=== PATIENT | female | born 1945 | race Caucasian/White ===

== ENCOUNTER 2021-12-28 06:28 | Day surgery (SDC) | payer OTHER ==
[2021-12-28] MEDS ORDERED: MOXIFLOXACIN HCL 0.5% 3ML OPTH OPTH ONE (06:55)
[2021-12-28] MEDS ORDERED: PHENYLEPHRINE 10% OPTH 5ML ONE (06:55)
[2021-12-28] MEDS ORDERED: TROPICAMIDE 1% OPTH 3 ML BOT ONE (06:55)
[2021-12-28] MEDS ORDERED: Ringers Lactate 1,000 ML IV ONE (06:55)
[2021-12-28] MEDS ORDERED: CYCLOPENTOLATE 2% OPTH 2 ML ONE (06:55)
[2021-12-28] MEDS ORDERED: KETOROLAC OPTHALMIC 5 ML BOT ONE (06:55)
[2021-12-28] MEDS ORDERED: TOBRADEX 0.3-0.1% OPTH OINTMENT ONE (07:05)
[2021-12-28] MEDS ORDERED: BSS OPTHALMIC SOL 15 ML OPTH ONE (07:05)
[2021-12-28] MEDS ORDERED: EPINEPHRINE/PF 1 MG/ML AMP ONE (07:06)
[2021-12-28] MEDS ORDERED: POVIDONE-IODINE 5% EYE DROPS ONE (07:06)
[2021-12-28] MEDS ORDERED: BALANCED SALT IRRIG PLAIN 500 ML IRR ONE (07:06)
[2021-12-28] MEDS ORDERED: DUOVISC 1 KIT OPTH ONE (07:07)
[2021-12-28] MEDS ORDERED: TRYPAN BLUE 0.5 ML SYR OPTH ONE (07:07)
[2021-12-28] MEDS ORDERED: propofoL 200 MG/20 ML VIAL IV ONE (07:25)
[2021-12-28] MEDS ORDERED: FENTANYL CITR 100 MCG/2 ML ONE (07:25)
[2021-12-28] MEDS ORDERED: LIDOCAINE 2% MPF 5 ML VIAL ONE (07:25)
[2021-12-28] MEDS ORDERED: ONDANSETRON 4 MG/2 ML VIAL ONE ×2 (08:00)
[2021-12-28] MEDS ORDERED: NS 0.9% VIAL 10 ML ONE (08:03)
[2021-12-28] MEDS ORDERED: Phenylephrine HCl 10 MG/ML 1 ML VIAL ONE (08:03)
[2021-12-28 08:59] VITALS: TEMP 97.1; O2SAT 98
--- NOTE | 2021-12-28 09:46 | OP ---
Date of Procedure: 12/28/2021 Surgeon: Casper Moscoso MD Alcohol Still Operator: None. 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 Procedure Performed: Synechiae lysis in right eye with extraction of cataract in right eye with plac ement of intraocular lens. Description Of Procedure: After being properly identified in the preoperative holding area, the jluis ent was taken back to the operating room where a time-out was performed. The patient was then preppe d and draped in the normal sterile fashion. Examination of the eye underneath the operating microsco pe revealed an area of posterior synechiae at roughly 11:30, securing the iris to the anterior capsul e. The globe was grasped with a pair of 0.12 forceps and a paracentesis wound was made in the 12 o'c lock and 6 o'clock position and the anterior chamber filled with viscoelastic. A main phaco incision wound was thereafter made using a keratome in a triplanar fashion and then additional viscoelastic a s well as the viscoelastic cannula was used to break the posterior synechiae. This was done without complication. A cystotome was then used to initiate a capsulotomy and a continuous curvilinear capsu lotomy was completed using Utrata forceps. Hydrodissection and hydrodelineation were carried out usi ng a Reynoso cannula resulting in free rotation of the lens nucleus and the lens was removed in a stand sahara divide and conquer technique. Once all 4 quadrants had been removed, the phaco handpiece was exc hanged for bimanual irrigation aspiration hand pieces that were inserted through the paracentesis por ts made previously and all cortical material was removed and the capsule polished. The capsular bag was then filled with additional viscoelastic and a model DCB00 power 20.5 diopter, serial #[id number] was placed into the capsular bag and dialed into position. The irrigation aspiration handpieces wer e then used to remove the remaining viscoelastic. At various points throughout the procedure, the te mporal iris did display some floppiness and did protrude through the wound on multiple occasions. Th is was reposited each time without complications. However, there was a small amount of iris bleeding noted towards the end. This was irrigated out and no hyphema was present. No additional bleeding w as seen. Hydration of all wounds was carried out and the wounds were all found to be watertight with the iris well secured and so therefore the procedure concluded. The lid speculum and drapes were re moved and the patient patched over TobraDex ointment and taken to the postoperative holding area in s table condition, having tolerated procedure well, being under general anesthesia the entire time. Th ere were no complications. Estimated blood loss was less than 5 mL. No specimens were sent. No janey ins were placed and the implants are as above. The patient is to follow up with myself, Dr. Casper Moscoso at the [facility] tomorrow morning. KARRIEG/ETIENNEL Voice ID: [id number] Report ID: [id number]
[2021-12-28 10:04] VITALS: BP 122/76
== END 2021-12-28 09:45 | disposition home or self-care (01) ==
LOC: OR 06:28
PROVIDERS: ATTEND Ophthalmology
PROC: 08NC3ZZ Release Right Iris, Percutaneous Approach (ICD-10-PCS; 2021-12-28)
PROC: 08RJ3JZ Replacement of Right Lens with Synthetic Substitute, Percutaneous Approach (ICD-10-PCS; principal; 2021-12-28 07:30)
DX: H25.11 Age-related nuclear cataract, right eye (principal); H21.541 Posterior synechiae (iris), right eye
CPT/HCPCS: 66984; 65875; J2704; J0171; J2370; J2001; J3010; A4216; J7120; J2405

== ENCOUNTER 2022-02-01 05:55 | Day surgery (SDC) | payer OTHER ==
[2022-02-01] MEDS ORDERED: PHENYLEPHRINE 10% OPTH 5ML ONE (06:01)
[2022-02-01] MEDS ORDERED: TROPICAMIDE 1% OPTH 3 ML BOT ONE (06:01)
[2022-02-01] MEDS ORDERED: KETOROLAC OPTHALMIC 5 ML BOT ONE (06:02)
[2022-02-01] MEDS ORDERED: CYCLOPENTOLATE 2% OPTH 2 ML ONE (06:02)
[2022-02-01] MEDS ORDERED: MOXIFLOXACIN HCL 0.5% 3ML OPTH OPTH ONE (06:02)
[2022-02-01] MEDS ORDERED: Ringers Lactate 1,000 ML IV ONE (06:02)
[2022-02-01] MEDS ORDERED: BSS OPTHALMIC SOL 15 ML OPTH ONE (06:50)
[2022-02-01] MEDS ORDERED: POVIDONE-IODINE 5% EYE DROPS ONE (06:50)
[2022-02-01] MEDS ORDERED: FENTANYL CITR 100 MCG/2 ML ONE (07:20)
[2022-02-01] MEDS ORDERED: KETOROLAC 30 MG/ML INJ ONE (07:21)
[2022-02-01] MEDS ORDERED: propofoL 200 MG/20 ML VIAL IV ONE (07:21)
[2022-02-01] MEDS ORDERED: LIDOCAINE 2% MPF 5 ML VIAL ONE (07:21)
[2022-02-01] MEDS ORDERED: ONDANSETRON 4 MG/2 ML VIAL ONE (07:21)
[2022-02-01] MEDS ORDERED: dexAMETHasone 4 MG/ML VIAL ONE (07:21)
[2022-02-01] MEDS: EPINEPHRINE/PF 1 MG/ML AMP ONE ×2 (07:34→08:10)
[2022-02-01] MEDS: BALANCED SALT IRRIG PLAIN 500 ML IRR ONE ×2 (07:34→08:10)
[2022-02-01] MEDS: DUOVISC 1 KIT OPTH ONE ×2 (07:35→08:10)
[2022-02-01] MEDS: TOBRADEX 0.3-0.1% OPTH OINTMENT ONE ×2 (07:36→08:14)
[2022-02-01 11:32] VITALS: BP 118/74; O2SAT 100
[2022-02-01 11:33] VITALS: TEMP 96.5
--- NOTE | 2022-02-01 18:25 | OP ---
Date of Procedure: 02/01/2022 Surgeon: Casper Moscoso MD Supervisor Printing Shop: None. Preoperative Diagnosis: Senile cataract, left eye. Postoperative Diagnosis: Senile cataract, left eye. Procedure Performed: Cataract extraction, left eye with placement of intraocular lens. Description Of Procedure: After being properly identified in the preoperative holding, the patient w as taken back to the operating room, where a time-out was performed. The patient was then prepped an d draped in normal sterile fashion. The globe was grasped with a pair of 0.12 forceps and a paracent esis wound was made in the 6 o'clock and 12 o'clock position and the anterior chamber filled with Vis coat. A main phaco incision was then made using a 2.4 mm keratome in a triplanar fashion temporally. A continuous curvilinear capsulorrhexis was initiated and created with an Utrata forceps, and hydro dissection and hydrodelineation of the lens was carried out resulting in its free rotation. The lens was thereafter removed in the standard divide and conquer technique with CDE approximately 12.96. O nce all 4 quadrants had been removed, the phaco handpiece was exchanged for bimanual irrigation, aspi ration handpieces, and all cortical material was removed followed by capsule yakut, and then, instal lation of Provisc. A [employer] model DCB00 IOL power 20.5 diopter, serial #[id number] was then injected into the capsular bag and rotated so that the haptics lied in the horizontal orientatio n, and thereafter, the remaining viscoelastic was removed using a coaxial I and A handpiece. The wou nd was then hydrated with a 30-gauge cannula, and once found to be watertight, the procedure conclude d with the patient having tolerated the procedure well being under general anesthesia the entire time . There were no complications. Estimated blood loss, none. No specimens were sent. No drains were placed. Implants are as above. The patient was taken to the postoperative holding area in stable c ondition having tolerated the procedure well. She is to follow up with myself, Dr. Casper Moscoso, at the [facility] tomorrow morning. JPG/MODL Voice ID: [id number] Report ID: [id number]
== END 2022-02-01 09:45 | disposition home or self-care (01) ==
LOC: OR 05:55
PROVIDERS: ATTEND Ophthalmology
PROC: 08RK3JZ Replacement of Left Lens with Synthetic Substitute, Percutaneous Approach (ICD-10-PCS; principal; 2022-02-01 07:30)
DX: H25.9 Unspecified age-related cataract (principal); H54.7 Unspecified visual loss; I10 Essential (primary) hypertension; Z88.8 Allergy status to other drugs, medicaments and biological substances
CPT/HCPCS: 66982; J2704; J1100; J0171; J2001; J3010; J7120; J2405

== ENCOUNTER 2024-11-16 08:40 | Observation (INO) | payer MEDICARE, OTHER ==
--- NOTE | 2024-11-16 09:43 | RAD REPORT ---
Procedure: Chest Single View HISTORY: Chest pain COMPARISON: none FINDINGS: The lungs appear clear of acute infiltrate. No significant pleural effusion noted. The heart is normal size. IMPRESSION: No acute abnormality is displayed.
[2024-11-16] MEDS ORDERED: ASPIRIN 81 MG CHEWABLE TABLET ONE (09:47)
[2024-11-16] MEDS ORDERED: FAMOTIDINE 20 MG/2 ML VIAL IV ONE (09:52)
[2024-11-16 09:55] LABS: Absolute Lymphocytes (CBC) 2.7 K/uL (0.7-4.9); Hematocrit 33.8 % (36.0-45.0); Hemoglobin 11.4 g/dL (12.0-15.0); MCH 30.9 pg (27.0-35.0); MCHC 33.7 g/dL (32.0-36.0); MCV 91.7 fL (80-100); MPV 8.9 fL (7.6-11.3); Nucleated RBC Absolute Count 0.0 (0-0); Nucleated Red Blood Cells % 0.0 % (0-0); RBC Red Blood Cell Count 3.69 M/uL (3.86-4.86); White Blood Count 9.40 thou/uL (4.3-10.9)
[2024-11-16 09:56] LABS: Urine Microscopic Reflex YN NO UMIC
[2024-11-16 10:04] LABS: PT Prothrombin Time 12.9 SECONDS (10-13.0); Protime INR 1.15
[2024-11-16 10:20] LABS: ALT/SGPT 29.0 U/L (13-56); AST/SGOT 17.0 U/L (15-37); Albumin 3.5 g/dL (3.4-5.0); Albumin/Globulin Ratio 0.9 (1.1-1.8); Alkaline Phosphatase 109.0 U/L (45-117); Anion Gap 9.7 mEq/L (5.0-15.0); BUN Blood Urea Nitrogen 12.0 mg/dL (7-18); Bilirubin Indirect, Calculated 0.2 mg/dL (0.2-0.8); Globulin 4.0 g/dL (2.3-3.5); Glucose Level 98.0 mg/dL (74-106); Lipase 40.0 U/L (13-75); Magnesium 1.6 mg/dL (1.6-2.4); NT PRO-BNP 136.0 pg/mL (<450); Potassium 3.7 mEq/L (3.5-5.1); Troponin High Sensitivity 4.1 pg/mL (<58.9)
--- NOTE | 2024-11-16 11:27 | EDPHYS ---
Physician Documentation [facility] Name: Mickie Olvera Age: 79 yrs Sex: Female : 1945 Arrival Date: 11/16/2024 Time: 08:40 Bed 14 Private MD: OMER Physician Aneesh Bravo HPI: 11/16 11:20 This 79 yrs old Female presents to ER via Ambulatory with complaints of Chest renae Pain. 11:20 The patient or guardian reports chest pain that is located primarily in the substernal renae area. Onset: 1 day(s) ago. The pain does not radiate. Associated signs and symptoms: Pertinent positives: shortness of breath. The chest pain is described as a heaviness, causing indigestion. Duration: The patient or guardian reports multiple episodes, with no pattern. Severity of pain: At its worst the pain was mild in the emergency department the pain is unchanged. The patient has not experienced similar symptoms in the past. Historical: - Allergies: 09:01 Morphine; ll1 09:01 nuts; ll1 - PMHx: 09:01 Hypertensive disorder; Diabetes mellitus; ll1 - PSHx: 09:01 Cholecystectomy; hysterectomy; ll1 - Immunization history:: Adult Immunizations up to date. - Social history:: Smoking status: Patient denies any tobacco usage or history of. - Family history:: not pertinent. ROS: 11:20 Constitutional: Negative for fever, chills, and weight loss, Eyes: Negative for injury, renae pain, redness, and discharge, ENT: Negative for injury, pain, and discharge, Neck: Negative for injury, pain, and swelling, Respiratory: Negative for shortness of breath, cough, wheezing, and pleuritic chest pain, Abdomen/GI: Negative for abdominal pain, nausea, vomiting, diarrhea, and constipation, Back: Negative for injury and pain, : Negative for injury, bleeding, discharge, and swelling, MS/Extremity: Negative for injury and deformity, Skin: Negative for injury, rash, and discoloration, Neuro: Negative for headache, weakness, numbness, tingling, and seizure, Psych: Negative for depression, anxiety, suicide ideation, homicidal ideation, and hallucinations, Allergy/Immunology: Negative for hives, rash, and allergies, Endocrine: Negative for neck swelling, polydipsia, polyuria, polyphagia, and marked weight changes, Hematologic/Lymphatic: Negative for swollen nodes, abnormal bleeding, and unusual bruising, 11:20 Cardiovascular: Positive for chest pain, Exam: 11:20 Constitutional: This is a well developed, well nourished patient who is awake, alert, renae and in no acute distress. Head/Face: Normocephalic, atraumatic. Eyes: Pupils equal round and reactive to light, extra-ocular motions intact. Lids and lashes normal. Conjunctiva and sclera are non-icteric and not injected. Cornea within normal limits. Periorbital areas with no swelling, redness, or edema. ENT: Nares patent. No nasal discharge, no septal abnormalities noted. Tympanic membranes are normal and external auditory canals are clear. Oropharynx with no redness, swelling, or masses, exudates, or evidence of obstruction, uvula midline. Mucous membranes moist. Neck: Trachea midline, no thyromegaly or masses palpated, and no cervical lymphadenopathy. Supple, full range of motion without nuchal rigidity, or vertebral point tenderness. No Meningismus. Chest/axilla: Normal chest wall appearance and motion. Nontender with no deformity. No lesions are appreciated. Cardiovascular: Regular rate and rhythm with a normal S1 and S2. No gallops, murmurs, or rubs. Normal PMI, no JVD. No pulse deficits. Respiratory: Lungs have equal breath sounds bilaterally, clear to auscultation and percussion. No rales, rhonchi or wheezes noted. No increased work of breathing, no retractions or nasal flaring. Abdomen/GI: Soft, non-tender, with normal bowel sounds. No distension or tympany. No guarding or rebound. No evidence of tenderness throughout. Back: No spinal tenderness. No costovertebral tenderness. Full range of motion. Female : Normal external genitalia. Skin: Warm, dry with normal turgor. Normal color with no rashes, no lesions, and no evidence of cellulitis. MS/ Extremity: Pulses equal, no cyanosis. Neurovascular intact. Full, normal range of motion., bilateral aka Neuro: Awake and alert, GCS 15, oriented to person, place, time, and situation. Cranial nerves II-XII grossly intact. Motor strength 5/5 in all extremities. Sensory grossly intact. Cerebellar exam normal. Normal gait. Psych: Awake, alert, with orientation to person, place and time. Behavior, mood, and affect are within normal limits. 11:20 ECG was reviewed by the Attending Physician. Vital Signs: 09:00 BP 147 / 81; Pulse 79; Resp 17; Temp 97.4; Pulse Ox 98% ; Weight 72.57 kg; Height 5 ft. ll1 2 in. ; Pain 2/10; 10:06 BP 143 / 97; Pulse 76; Resp 18; Pulse Ox 98% on R/A; ap3 11:19 BP 140 / 86; Pulse 77; Resp 17; Pulse Ox 99% on R/A; ap3 11:56 BP 135 / 79; Pulse 73; Resp 18; Pulse Ox 100% on R/A; ap3 13:58 BP 136 / 81; Pulse 77; Resp 18; Temp 98; Pulse Ox 100% ; Pain 0/10; rg5 09:00 Body Mass Index 29.26 (72.57 kg, 157.48 cm) ll1 09:00 Pain Scale: Adult ll1 13:58 Pain Scale: Adult rg5 [place] Coma Score: 11:20 Eye Response: spontaneous(4). Motor Response: obeys commands(6). Verbal Response: renae oriented(5). Total: 15. MDM: 08:48 Medical Screening Exam initiated renae 11:23 Differential diagnosis: abnormal EKG, acute myocardial infarction, acute pericarditis, renae anxiety, coronary artery disease chest wall pain, congestive heart failure pancreatitis, peptic ulcer disease, pleurisy, pneumonia, pulmonary embolus, stable angina, thoracic aortic disection, unstable angina. HEART Score: History: Moderately Suspicious (1), ECG: Normal (0), Age: > or = 65 years (2), Risk Factors: > or = 3 Risk factors for atherosclerotic disease (2), [Hypercholesterolemia] [Hypertension] [DM] [+ Family HX] Troponin: < or = 1 x Normal Limit (0). The patient was given aspirin in the Emergency Department. LIA Risk Score: 1 - patient's age is greater or equal to 65 years, 1 - Three or more CAD risk factors, [Family Hx], [HTN], [Elevated Cholesterol], [DM], 1- Known CAD, 1 - ASA use in past 7 days. Data reviewed: vital signs, nurses notes, lab test result(s), EKG, radiologic studies, plain films. Consideration of Admission/Observation Patient was admitted/placed on observation. Escalation of care including admission/observation considered. I considered the following discharge prescriptions or medication management in the emergency department Medications were administered in the Emergency Department. See MAR. Independent interpretation of the following test(s) in the Emergency Department EKG: See my EKG interpretation above X-Ray: My interpretation is CHEST PAIN. Test considered but Not performed:. 11/16 08:49 Order name: Basic Metabolic Panel; Complete Time: 11: [facility] 11/16 08:49 Order name: CBC with Diff; Complete Time: : [facility] 11/16 08:49 Order name: LFT's; Complete Time: : [facility] 11/16 08:49 Order name: Magnesium; Complete Time: : [facility] 11/16 08:49 Order name: NT PRO-BNP; Complete Time: : [facility] 11/16 08:49 Order name: PT-INR; Complete Time: 11: [facility] 11/16 08:49 Order name: Troponin HS; Complete Time: : [facility] 11/16 08:49 Order name: Lipase; Complete Time: 11: [facility] 11/16 08:49 Order name: UA Rfx Damon Cult if indicated; Complete Time: : [facility] 11/16 11:32 Order name: Lipid Profile 11/16 11:44 Order name: Ptt, Activated ap3 11/16 12:53 Order name: Magnesium [facility] 11/16 12:53 Order name: Phosphorus [facility] 11/16 12:54 Order name: T4 Free [facility] 11/16 12:54 Order name: Thyroid Stimulating Hormone [facility] 11/16 12:54 Order name: Basic Metabolic Panel [facility] 11/16 12:54 Order name: Basic Metabolic Panel [facility] 11/16 12:54 Order name: Comprehensive Metabolic Panel [facility] 11/16 12:54 Order name: Comprehensive Metabolic Panel [facility] 11/16 08:49 Order name: XRAY Chest (1 view); Complete Time: 11:10 [facility] 11/16 08:49 Order name: EKG; Complete Time: 08:50 [facility] 11/16 08:49 Order name: Cardiac monitoring; Complete Time: 09:40 [facility] 11/16 08:49 Order name: EKG - Nurse/Tech; Complete Time: 09:40 [facility] 11/16 08:49 Order name: IV Saline Lock; Complete Time: 09:54 renae 11/16 08:49 Order name: Labs collected and sent; Complete Time: :54 renae 11/16 08:49 Order name: O2 Per Protocol; Complete Time: : renae 11/16 08:49 Order name: O2 Sat Monitoring; Complete Time: : renae EC:20 Rate is 74 beats/min. Rhythm is regular. QRS [place] is Normal. MO interval is normal. QRS renae interval is normal. QT interval is normal. No Q waves. T waves are Normal. No ST changes noted. Clinical impression: Normal ECG and No evidence of ischemia. Interpreted by me. Reviewed by me. Administered Medications: 10:02 Drug: Aspirin PO Chewable Tablet 324 mg PO once; 81 mg tablets x 4 Route: PO; ap3 14:23 Follow up: Response: No adverse reaction rg5 10:02 Drug: Famotidine IVP 20 mg IVP once; dilute with 10 mL 0.9% NaCl; give over 2 minutes ap3 Route: IVP; Site: right antecubital; 11:51 Follow up: Response: No adverse reaction ap3 12:40 Drug: Heparin (PR-Bolus No thrombolytic) - HEParin IVP 60 units/kg IVP once; Max 5000 rg5 units {Co-Signature: [email or web address] (Je Torres RN).} Route: IVP; Site: right antecubital; 14:23 Follow up: Response: No adverse reaction rg5 12:45 Drug: Heparin (PR Drip) 12 units/kg/[place] - ([place] [address] units, D5W IV 500 ml) IV at rg5 calculated rate Per protocol; Max initial rate 1000 units/hr {Co-Signature: ll1 (Je Torres RN).} Route: IV; Rate: calculated rate; Site: right antecubital; 14:28 Follow up: IV Status: Infusion continued upon admission rg5 Disposition Summary: 11/16/24 11:26 Hospitalization Ordered Notes: Hospitalization Status: Inpatient Admission renae Provider: Rudy Agrawal cha Location: Telemetry/MedSurg (Inpatient) renae Condition: Fair renae Problem: new renae Symptoms: have improved renae Bed/Room Type: Standard renae Room Assignment: 208(11/16/24 13:09) bd Diagnosis - Chest pain, unspecified renae - Essential (primary) hypertension renae - Unstable angina renae Forms: - Medication Reconciliation Form renae - SBAR form renae - Leadership Thank You Letter renae Signatures: Dispatcher [employer] Zoila Machado Corey, MD MD cha Prokisch, Amanda RN RN ap3 Je Torres RN RN ll1 Aamir Rincon RN RN rg5 Je Torres RN ll1 Corrections: (The following items were deleted from the chart) 13: 11:26 renae ornelas
--- NOTE | 2024-11-16 11:27 | ER ---
Nurse's Notes [facility] Name: Mickie Olvera Age: 79 yrs Sex: Female : 1945 Arrival Date: 11/16/2024 Time: 08:40 Bed 14 Private MD: Diagnosis: Chest pain, unspecified;Essential (primary) hypertension;Unstable angina Presentation: 11/16 09:00 Chief complaint: Patient states: CP off/on for a few months. Some SOB. Coronavirus ll1 screen: Client denies travel out of the [place] in the last 14 days. At this time, the client does not indicate any symptoms associated with coronavirus-19. Ebola Screen: Patient denies travel to an Ebola-affected area in the 21 days before illness onset. Initial Sepsis Screen: Does the patient meet any 2 criteria? No. Patient's initial sepsis screen is negative. Does the patient have a suspected source of infection? No. Patient's initial sepsis screen is negative. Risk Assessment: Do you want to hurt yourself or someone else? Patient reports no desire to harm self or others. Onset of symptoms was August 15, 2024. 09:00 Method Of Arrival: Ambulatory ll1 09:00 Acuity: JAMEL 3 ll1 Triage Assessment: 10:04 General: Appears in no apparent distress. Behavior is calm, cooperative, appropriate ap3 for age. Pain: Complains of pain in xiphoid area and mid-sternal area Pain currently is 0 out of 10 on a pain scale. Is intermittent. Neuro: Level of Consciousness is awake, alert, obeys commands, Oriented to person, place, time, situation, Appropriate for age. Cardiovascular: Reports chest pain, Patient's skin is warm and dry. Respiratory: Airway is patent Respiratory effort is even, unlabored, Respiratory pattern is regular, symmetrical. Historical: - Allergies: 09:01 Morphine; ll1 09:01 nuts; ll1 - PMHx: 09:01 Hypertensive disorder; Diabetes mellitus; ll1 - PSHx: 09:01 Cholecystectomy; hysterectomy; ll1 - Immunization history:: Adult Immunizations up to date. - Social history:: Smoking status: Patient denies any tobacco usage or history of. - Family history:: not pertinent. Screenin:04 [facility] ED Fall Risk Assessment (Adult) History of falling in the last 3 months, ap3 including since admission No falls in past 3 months (0 pts) Confusion or Disorientation No (0 pts) Intoxicated or Sedated No (0 pts) Impaired Gait No (0 pts) Mobility Assist Device Used No (0 pt) Altered Elimination No (0 pt) Score/Fall Risk Level 0 - 2 = Low Risk Oriented to surroundings, Maintained a safe environment, Educated pt \T\ family on fall prevention, incl call for assistance when getting out of bed, Assessed \T\ reinforced patient's understanding of fall precautions, Hourly rounding (assess needs \T\ fall precautionary measures) done, Used ambulatory aids as needed (educated on \T\ assisted with). Abuse screen: Denies threats or abuse. Nutritional screening: No deficits noted. Tuberculosis screening: No symptoms or risk factors identified. Assessment: 10:05 Pain: Pain does not radiate. Pain began june 2024. ap3 12:10 General: Appears in no apparent distress. comfortable, Behavior is calm, cooperative, rg5 appropriate for age. Pain: Denies pain. 12:10 Neuro: Level of Consciousness is awake, alert, obeys commands, Oriented to person, rg5 place, time, situation. Cardiovascular: Reports chest pain, Patient's skin is warm and dry. Respiratory: Airway is patent Trachea midline Respiratory effort is even, unlabored. GI: Abdomen is round non-distended. : No signs and/or symptoms were reported regarding the genitourinary system. EENT: No signs and/or symptoms were reported regarding the EENT system. Derm: Skin is intact, Skin is dry, Skin is normal. Musculoskeletal: Circulation, motion, and sensation intact. 13:00 Reassessment: Patient and/or family updated on plan of care and expected duration. Pain rg5 level reassessed. Patient is alert, oriented x 3, equal unlabored respirations, skin warm/dry/pink. 14:23 Reassessment: No changes from previously documented assessment. Patient and/or family rg5 updated on plan of care and expected duration. Pain level reassessed. Patient is alert, oriented x 3, equal unlabored respirations, skin warm/dry/pink. Vital Signs: 09:00 BP 147 / 81; Pulse 79; Resp 17; Temp 97.4; Pulse Ox 98% ; Weight 72.57 kg; Height 5 ft. ll1 2 in. ; Pain 2/10; 10:06 BP 143 / 97; Pulse 76; Resp 18; Pulse Ox 98% on R/A; ap3 11:19 BP 140 / 86; Pulse 77; Resp 17; Pulse Ox 99% on R/A; ap3 11:56 BP 135 / 79; Pulse 73; Resp 18; Pulse Ox 100% on R/A; ap3 13:58 BP 136 / 81; Pulse 77; Resp 18; Temp 98; Pulse Ox 100% ; Pain 0/10; rg5 09:00 Body Mass Index 29.26 (72.57 kg, 157.48 cm) ll1 09:00 Pain Scale: Adult ll1 13:58 Pain Scale: Adult rg5 [place] Coma Score: 11:20 Eye Response: spontaneous(4). Motor Response: obeys commands(6). Verbal Response: renae oriented(5). Total: 15. ED Course: 08:47 Patient arrived in ED. cj3 08:48 Aneesh Bravo MD is Attending Physician. renae 08:56 Arm band placed on Patient placed in an exam room, on a stretcher. ll1 09:01 Triage completed. ll1 09:26 XRAY Chest (1 view) In Process Unspecified. EDMS 09:32 Maricarmen Angelo, RN is Primary Nurse. ap3 09:40 EKG done, by ED staff, reviewed by Aneesh Bravo MD. ap3 09:54 Initial lab(s) drawn, by ky, sent to lab. Inserted saline lock: 20 gauge in right ap3 antecubital area, using aseptic technique. Blood collected. Flushed with 10 mL NS. 10:05 Patient has correct armband on for positive identification. Placed in gown. Bed in low ap3 position. Call light in reach. Side rails up X 1. Adult w/ patient. Provided Education on: medications prior to administration . Client placed on continuous cardiac and pulse oximetry monitoring. NIBP monitoring applied. telemetry monitor on. Pulse ox on. NIBP on. 10:05 No provider procedures requiring assistance completed. Patient maintains SpO2 ap3 saturation greater than 95% on room air. 11:25 Rudy Agrawal MD is Hospitalizing Provider. renae 14:19 Inserted saline lock: 20 gauge in left antecubital area, using aseptic technique. Blood rg5 collected. Flushed with 10 mL NS. 14:39 Patient admitted, IV remains in place. intact, No redness/swelling at site. rg5 Administered Medications: 10:02 Drug: Aspirin PO Chewable Tablet 324 mg PO once; 81 mg tablets x 4 Route: PO; ap3 14:23 Follow up: Response: No adverse reaction rg5 10:02 Drug: Famotidine IVP 20 mg IVP once; dilute with 10 mL 0.9% NaCl; give over 2 minutes ap3 Route: IVP; Site: right antecubital; 11:51 Follow up: Response: No adverse reaction ap3 12:40 Drug: Heparin (DE-Bolus No thrombolytic) - HEParin IVP 60 units/kg IVP once; Max 5000 rg5 units {Co-Signature: yohannes (Je Torres RN).} Route: IVP; Site: right antecubital; 14:23 Follow up: Response: No adverse reaction rg5 12:45 Drug: Heparin (DE Drip) 12 units/kg/hr - ([place] [address] units, D5W IV 500 ml) IV at rg5 calculated rate Per protocol; Max initial rate 1000 units/hr {Co-Signature: yohannes (Je Torres RN).} Route: IV; Rate: calculated rate; Site: right antecubital; 14:28 Follow up: IV Status: Infusion continued upon admission rg5 Medication: 10:05 VIS not applicable for this client. ap3 Outcome: 11:26 Decision to Hospitalize by Provider. renae 14:38 Admitted to Med/surg accompanied by nurse, via wheelchair, rg5 14:38 Condition: stable 14:38 Instructed on the need for admit, 14:39 Patient left the ED. rg5 Signatures: Dispatcher [employer] EDAneesh Plunkett MD MD cha Prokisch, Amanda RN RN ap3 Je Torres RN RN ll1 Aamir Rincon RN RN rg5 Gail Gregory 3 Je Torres RN ll1
[2024-11-16 11:54] LABS: HDL Cholesterol 60.0 mg/dL (40-60); LDL Cholesterol, Calculated 31.0 mg/dL (<130); LDL Cholesterol,Calc NonReport 31.0
[2024-11-16] MEDS ORDERED: HEPARIN 5000 UNIT/ML 1 ML VIAL ONE (12:20)
[2024-11-16] MEDS ORDERED: HEPARIN/D5W 25,000 UNIT/500 ML BAG IV ONE (12:20)
[2024-11-16] MEDS ORDERED: HYDROCODONE/APAP 5/325 MG TAB PO PRN (12:46)
[2024-11-16] MEDS ORDERED: ACETAMINOPHEN 325 MG TABLET PO PRN (12:46)
[2024-11-16] MEDS ORDERED: ONDANSETRON 4 MG/2 ML VIAL IV PRN (12:51)
--- NOTE | 2024-11-16 12:53 | P.HP ---
Certification for Inpatient Patient admitted to: Observation With expected LOS: <2 Midnights Patient will require the following post-hospital care: None Practitioner: I am a practitioner with admitting privileges, knowledge of patient current condition, hospital course, and medical plan of care. Services: Services provided to patient in accordance with Admission requirements found in Title 42 Section 412.3 of the Code of Federal Regulations <Gabrielle Oates - Last Filed: 11/16/24 15:58> Patient History Date of Service: 11/16/24 Reason for admission: Chest pain History of Present Illness: Provide patient is a 79-year-old female with a past medical history significant for DM2, hypertension who presents with complaint of chest that has been ongoing intermittently pain since June 2024. Patient reports that she experiences sudden chest pain that lasts for a few minutes. Patient indicated that chest pain is located in the substernal chest area. Patient rated pain as 9/10 in severity and described pain as pressure in quality. Patient reported associated signs and symptoms of shortness of breath and lightheadedness. Patient reported that she had a stress test and an echocardiogram done with her phytopathologist last week. Patient went to her phytopathologist office for results and patient had another episode of chest pain while in the phytopathologist's office. Patient was instructed by her phytopathologist to go to the ER for possible LHC. Patient decided to present to the hospital as directed. - Past Medical/Surgical History -: HTN -: DM 2 -: Cholecystectomy -: Hysterectomy - Family History Father -: Heart disease Mother -: Cancer - Social History Smoking Status: Never smoker Alcohol use: No CD- Drugs: No Caffeine use: Yes Place of Residence: Home <Gabrielle Oates Deanna - Last Filed: 11/16/24 15:58> Date of Service: 11/16/24 <Rudy Agrawal - Last Filed: 11/16/24 17:03> Allergies naproxen Allergy (Severe, Verified 02/01/22 08:07) Itching morphine Allergy (Intermediate, Verified 02/01/22 08:07) Nausea/Vomiting Home Medications: Atorvastatin Calcium [Lipitor] 10 mg PO BEDTIME 12/26/21 Ergocalciferol (Vitamin D2) [Vitamin D 50,000 Unit Cap] 50,000 unit PO EVERY 7TH DAY 12/26/21 Losartan Potassium [Cozaar] 100 mg PO BEDTIME 12/26/21 Multivitamin 1 each PO DAILY 12/26/21 Turmeric 400 mg PO DAILY 12/26/21 Vitamin B Complex [B-Complex Vitamin] 1 cap PO DAILY 12/26/21 Vitamin E [E-Vitamin] 400 iu PO DAILY 12/26/21 Review of Systems General: Unremarkable Eyes: Unremarkable ENT: Unremarkable Respiratory: Shortness of Breath Cardiovascular: Chest Pain, Light Headedness Gastrointestinal: Unremarkable Genitourinary: Unremarkable Musculoskeletal: Unremarkable Integumentary: Unremarkable Neurological: Unremarkable Lymphatics: Unremarkable <Gabrielle Oates - Last Filed: 11/16/24 15:58> Physical Examination - Physical Exam General: Alert, In no apparent distress, Oriented x3, Cooperative HEENT: Atraumatic, PERRLA, Mucous membr. moist/pink, EOMI, Sclerae nonicteric Neck: Supple, 2+ carotid pulse no bruit, No LAD, Without JVD or thyroid abnormality Respiratory: Normal air movement Cardiovascular: No edema, Regular rate/rhythm, Normal S1 S2 Capillary refill: <2 Seconds Gastrointestinal: Normal bowel sounds, No tenderness Musculoskeletal: No clubbing, No tenderness Integumentary: No rashes Neurological: Normal speech, Normal strength at 5/5 x4 extr, Normal tone, Normal affect Lymphatics: No axilla or inguinal lymphadenopathy - Studies Laboratory Data (last 24 hrs) 11/16/24 11/16/24 11/16/24 11:49 09:47 09:47 WBC Hgb Hct Plt Count PT 12.9 INR 1.15 APTT 33.9 Sodium Potassium BUN Creatinine Glucose Magnesium Total Bilirubin AST ALT Alkaline Phosphatase Triglycerides 102 Cholesterol 111 HDL Cholesterol 60 Cholesterol/HDL Ratio 1.85 Lipase 11/16/24 11/16/24 09:47 09:47 WBC 9.40 Hgb 11.4 L Hct 33.8 L Plt Count 288 PT INR APTT Sodium 140 Potassium 3.7 BUN 12 Creatinine 0.86 Glucose 98 Magnesium 1.6 Total Bilirubin 0.4 AST 17 ALT 29 Alkaline Phosphatase 109 Triglycerides Cholesterol HDL Cholesterol Cholesterol/HDL Ratio Lipase 40 <Gabrielle Oates - Last Filed: 11/16/24 15:58> - Studies Laboratory Data (last 24 hrs) 11/16/24 11/16/24 11/16/24 11:49 09:47 09:47 WBC Hgb Hct Plt Count PT 12.9 INR 1.15 APTT 33.9 Sodium Potassium BUN Creatinine Glucose Magnesium Total Bilirubin AST ALT Alkaline Phosphatase Triglycerides 102 Cholesterol 111 HDL Cholesterol 60 Cholesterol/HDL Ratio 1.85 Lipase 11/16/24 11/16/24 09:47 09:47 WBC 9.40 Hgb 11.4 L Hct 33.8 L Plt Count 288 PT INR APTT Sodium 140 Potassium 3.7 BUN 12 Creatinine 0.86 Glucose 98 Magnesium 1.6 Total Bilirubin 0.4 AST 17 ALT 29 Alkaline Phosphatase 109 Triglycerides Cholesterol HDL Cholesterol Cholesterol/HDL Ratio Lipase 40 <Rudy Agrawal - Last Filed: 11/16/24 17:03> Assessment and Plan - Plan Chest pain. --To rule out ACS. --Will trend serial troponins. --Cardiology consulted. Plans a left heart cath. --Telemetry to monitor for any significant arrhythmia. Hypertension --Poorly controlled. --Continue home medications --Hydralazine as needed for SBP greater than 160 mg mercury. DM2. --BS monitoring with sliding scale insulin Hyperlipidemia. --Continue statin CKD 2. --Stable. --Will continue to monitor renal functions. DVT prophylaxis with heparin subQ Discharge Plan: Home - Advance Directives Does patient have a Living Will: No Does patient have a Durable POA for Healthcare: No - Code Status/Comfort Care Code Status Assessed: Yes Physician Review: Patient Assessed, Agree with Above Assessment and Plan Critical Care: No <Gabrielle Oates - Last Filed: 11/16/24 15:58> Physician Review: Patient Assessed, Agree with Above Assessment and Plan <Rudy Agrawal - Last Filed: 11/16/24 17:03>
[2024-11-16 15:15] VITALS: BMI 29.2
[2024-11-16] MEDS ORDERED: HYDRALAZINE HCL 20 MG/ML VIAL IV PRN (15:56)
[2024-11-16] MEDS ORDERED: D10W 125 ML IV PRN (17:13)
[2024-11-16] MEDS ORDERED: GLUCAGON 1 MG/VIAL IM PRN (17:13)
[2024-11-16 20:04] LABS: Magnesium 1.6 mg/dL (1.6-2.4); Thyroid Stimulating Hormone 3.56 uIU/mL (0.358-3.740)
[2024-11-16] MEDS: ATORVASTATIN 10 MG TAB PO SCH (20:46)
[2024-11-16] MEDS: LOSARTAN POTASSIUM 50 MG TABLET PO SCH (20:47)
[2024-11-16] MEDS: INSULIN REGULAR (HUMAN) 100 UNIT/ML SQ SCH (20:47)
[2024-11-16] MEDS ORDERED: HOME MED 1 EA UNK (Losartan Potassium [Cozaar] 100 MG Tablet) PO SCH (21:00)
[2024-11-16] MEDS: FENTANYL CITR 100 MCG/2 ML IV PRN (23:06)
[2024-11-16] MEDS: ZOLPIDEM TARTRATE 5 MG TABLET PO PRN (23:06)
[2024-11-17 07:01] LABS: ALT/SGPT 22.0 U/L (13-56); AST/SGOT 19.0 U/L (15-37); Albumin 3.3 g/dL (3.4-5.0); Albumin/Globulin Ratio 0.8 (1.1-1.8); Alkaline Phosphatase 96.0 U/L (45-117); Anion Gap 7.4 mEq/L (5.0-15.0); BUN Blood Urea Nitrogen 16.0 mg/dL (7-18); Globulin 4.0 g/dL (2.3-3.5); Glucose Level 111.0 mg/dL (74-106); Potassium 3.4 mEq/L (3.5-5.1)
[2024-11-17] MEDS: POTASSIUM CL SA 10 MEQ TAB PO ONE (07:09)
[2024-11-17] MEDS: TURMERIC 400 MG PO SCH (08:19)
[2024-11-17] MEDS: VITAMIN B COMPLEX 1 CAP PO SCH (08:19)
[2024-11-17] MEDS: VITAMIN E 400 IU CAP PO SCH (08:19)
[2024-11-17] MEDS: Multi-VIT(Centravite Senior) 1 TAB TAB PO SCH (08:19)
[2024-11-17 08:56] VITALS: TEMP 97.6
[2024-11-17] MEDS ORDERED: HOME MED 1 EA UNK (Multivitamin [Multivitamin] Tablet) PO SCH (09:00)
[2024-11-17] MEDS ORDERED: LIDOCAINE 1% 20 ML MDV ONE (09:19)
[2024-11-17] MEDS ORDERED: HEPA 1000U/500MLS 2,000 UNIT/1,000 ML BAG IV ONE (09:19)
[2024-11-17] MEDS ORDERED: HEPARIN 5000 UNIT/ML 1 ML VIAL ONE (09:19)
[2024-11-17] MEDS ORDERED: ATROPINE SULF 1 MG/10 ML SYR IV ONE (09:19)
[2024-11-17] MEDS: FENTANYL CITR 100 MCG/2 ML ONE (09:33)
[2024-11-17] MEDS: MIDAZOLAM HCL 2 MG/2 ML INJ ONE (09:33)
[2024-11-17] MEDS: NA CHLORIDE 0.9% 500 ML ONE (09:33)
--- NOTE | 2024-11-17 11:03 | P.CNS ---
Date of Consult: 11/17/24 Chief Complaint: Chest pain History of Present Illness: Patient with PMH of HTN presented with chest pain, no palpitations, no syncope, no breathing problems. Allergies naproxen Allergy (Severe, Verified 02/01/22 08:07) Itching morphine Allergy (Intermediate, Verified 02/01/22 08:07) Nausea/Vomiting Home medications list reviewed: Yes Home Medications: Atorvastatin Calcium [Lipitor] 40 mg PO DAILY 12/26/21 Amlodipine [Norvasc*] 5 mg PO DAILY 11/16/24 Metformin ER [Glucophage ER*] 500 mg PO BID 11/16/24 Metoprolol Tartrate [Lopressor*] 25 mg PO DAILY 11/16/24 Olmesartan Medoxomil [Benicar] 40 mg PO DAILY 11/16/24 - Past Medical/Surgical History -: HTN -: DM 2 -: Cholecystectomy -: Hysterectomy - Family History Father Medical History: Heart disease Mother Medical History: Cancer - Social History Alcohol use: No CD- Drugs: No Caffeine use: Yes Place of Residence: Home Review of Systems 10-point ROS is otherwise unremarkable Physical Examination Temp Pulse Resp BP Pulse Ox 97.6 F 80 15 153/93 H 97 11/17/24 08:00 11/17/24 10:30 11/17/24 10:30 11/17/24 10:30 11/17/24 08:00 General: Alert, In no apparent distress HEENT: Atraumatic, PERRLA, Mucous membr. moist/pink, EOMI, Sclerae nonicteric Neck: Supple, 2+ carotid pulse no bruit, No LAD, Without JVD or thyroid abnormality Respiratory: Clear to auscultation bilaterally, Normal air movement Cardiovascular: Regular rate/rhythm, Normal S1 S2 Gastrointestinal: Normal bowel sounds, No tenderness Musculoskeletal: No tenderness Integumentary: No rashes Neurological: Normal gait, Normal speech, Normal tone, Normal affect Lymphatics: No axilla or inguinal lymphadenopathy Laboratory Data (last 24 hrs) 11/16/24 11/16/24 11:49 09:47 APTT 33.9 Triglycerides 102 Cholesterol 111 HDL Cholesterol 60 Cholesterol/HDL Ratio 1.85 - Problems (1) Chest pain Current Visit: Yes Status: Acute Plan: coronary angiogram done and shown normal coronaries stop ASA No further inpatient cardiac work up needed. (2) HTN (hypertension) Current Visit: Yes Status: Acute Plan: continue patient home medications (3) HLD (hyperlipidemia) Current Visit: Yes Status: Acute Plan: continue lipitor 10 mg daily Cardiology will sign off, please call with any questions.
--- NOTE | 2024-11-17 11:39 | P.DS ---
Admission Date: 11/16/24 Discharge Date: 11/17/24 Disposition: ROUTINE DISCHARGE Discharge Condition: GOOD Reason for Admission: Chest pain Brief History of Present Illness: Provide patient is a 79-year-old female with a past medical history significant for DM2, hypertension who presents with complaint of chest that has been ongoing intermittently pain since June 2024. Patient reports that she experiences sudden chest pain that lasts for a few minutes. Patient indicated that chest pain is located in the substernal chest area. Patient rated pain as 9/10 in severity and described pain as pressure in quality. Patient reported associated signs and symptoms of shortness of breath and lightheadedness. Patient reported that she had a stress test and an echocardiogram done with her [employer] teacher last week. 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 Patient was instructed by her [employer] teacher to go to the ER for possible LHC. Patient decided to present to the hospital as directed. Upon admission she was taken to Throat Cutter. Throat Cutter did not reveal any significant abnormalities. She will discharge home and follow-up with her [employer] teacher and PCP. Remainder of her medical problems chronic stable. She is medically optimized for discharge Hospital Course: Physical Examination - Physical Exam General: Alert, In no apparent distress, Oriented x3, Cooperative HEENT: Atraumatic, PERRLA, Mucous membr. moist/pink, EOMI, Sclerae nonicteric Neck: Supple, 2+ carotid pulse no bruit, No LAD, Without JVD or thyroid abnormality Respiratory: Normal air movement Cardiovascular: No edema, Regular rate/rhythm, Normal S1 S2 Capillary refill: <2 Seconds Gastrointestinal: Normal bowel sounds, No tenderness Musculoskeletal: No clubbing, No tenderness Integumentary: No rashes Neurological: Normal speech, Normal strength at 5/5 x4 extr, Normal tone, Normal affect Lymphatics: No axilla or inguinal lymphadenopathy - Studies Laboratory Data (last 24 hrs) 11/16/24 11/16/24 11/16/24 11:49 09:47 09:47 WBC Hgb Hct Plt Count PT 12.9 INR 1.15 APTT 33.9 Sodium Potassium BUN Creatinine Glucose Magnesium Total Bilirubin AST ALT Alkaline Phosphatase Triglycerides 102 Cholesterol 111 HDL Cholesterol 60 Cholesterol/HDL Ratio 1.85 Lipase 11/16/24 11/16/24 09:47 09:47 WBC 9.40 Hgb 11.4 L Hct 33.8 L Plt Count 288 PT INR APTT Sodium 140 Potassium 3.7 BUN 12 Creatinine 0.86 Glucose 98 Magnesium 1.6 Total Bilirubin 0.4 AST 17 ALT 29 Alkaline Phosphatase 109 Triglycerides Cholesterol HDL Cholesterol Cholesterol/HDL Ratio Lipase 40 - Studies Laboratory Data (last 24 hrs) 11/16/24 11/16/24 11/16/24 11:49 09:47 09:47 WBC Hgb Hct Plt Count PT 12.9 INR 1.15 APTT 33.9 Sodium Potassium BUN Creatinine Glucose Magnesium Total Bilirubin AST ALT Alkaline Phosphatase Triglycerides 102 Cholesterol 111 HDL Cholesterol 60 Cholesterol/HDL Ratio 1.85 Lipase 11/16/24 11/16/24 09:47 09:47 WBC 9.40 Hgb 11.4 L Hct 33.8 L Plt Count 288 PT INR APTT Sodium 140 Potassium 3.7 BUN 12 Creatinine 0.86 Glucose 98 Magnesium 1.6 Total Bilirubin 0.4 AST 17 ALT 29 Alkaline Phosphatase 109 Triglycerides Cholesterol HDL Cholesterol Cholesterol/HDL Ratio Lipase 40 Assessment and Plan - Plan Chest pain. --To rule out ACS. --Will trend serial troponins. --Cardiology consulted. Plans a left heart cath. --Telemetry to monitor for any significant arrhythmia. Hypertension --Poorly controlled. --Continue home medications --Hydralazine as needed for SBP greater than 160 mg mercury. DM2. --BS monitoring with sliding scale insulin Hyperlipidemia. --Continue statin CKD 2. --Stable. --Will continue to monitor renal functions. DVT prophylaxis with heparin subQ Discharge Plan: Home - Advance Directives Does patient have a Living Will: No Does patient have a Durable POA for Healthcare: No - Code Status/Comfort Care Code Status Assessed: Yes Vital Signs/Physical Exam: Temp Pulse Resp BP Pulse Ox 97.6 F 80 15 153/93 H 97 11/17/24 08:00 11/17/24 10:30 11/17/24 10:30 11/17/24 10:30 11/17/24 08:00 Laboratory Data at Discharge: WBC 9.40 thou/uL (4.3-10.9) 11/16/24 09:47 Hgb 11.4 g/dL (12.0-15.0) L 11/16/24 09:47 Hct 33.8 % (36.0-45.0) L 11/16/24 09:47 Plt Count 288 thou/uL (152-406) 11/16/24 09:47 PT 12.9 SECONDS (10-13.0) 11/16/24 09:47 INR 1.15 11/16/24 09:47 APTT 33.9 SECONDS (27.2-37.4) 11/16/24 11:49 Sodium 140 mEq/L (136-145) 11/17/24 06:34 Potassium 3.4 mEq/L (3.5-5.1) L 11/17/24 06:34 BUN 16 mg/dL (7-18) 11/17/24 06:34 Creatinine 0.78 mg/dL (0.55-1.02) 11/17/24 06:34 Glucose 111 mg/dL (74-106) H 11/17/24 06:34 Phosphorus 3.0 mg/dL (2.5-4.9) 11/16/24 19:25 Magnesium 1.6 mg/dL (1.6-2.4) 11/16/24 19:25 Total Bilirubin 0.4 mg/dL (0.2-1.0) 11/17/24 06:34 AST 19 U/L (15-37) 11/17/24 06:34 ALT 22 U/L (13-56) 11/17/24 06:34 Alkaline Phosphatase 96 U/L (45-117) 11/17/24 06:34 Triglycerides 102 mg/dL (<150) 11/16/24 09:47 Cholesterol 111 mg/dL (<200) 11/16/24 09:47 HDL Cholesterol 60 mg/dL (40-60) 11/16/24 09:47 Cholesterol/HDL Ratio 1.85 11/16/24 09:47 Lipase 40 U/L (13-75) 11/16/24 09:47 Home Medications: Atorvastatin Calcium [Lipitor*] 40 mg PO DAILY 12/26/21 Amlodipine [Norvasc*] 5 mg PO DAILY 11/16/24 Metformin ER [Glucophage ER*] 500 mg PO BID 11/16/24 Metoprolol Tartrate [Lopressor*] 25 mg PO DAILY 11/16/24 Olmesartan Medoxomil [Benicar] 40 mg PO DAILY 11/16/24 Followup: Sergo Hart DO [Primary Care Provider] - 1-2 Weeks
--- NOTE | 2024-11-17 12:50 | OP ---
Date of Procedure: 11/17/2024 Surgeon: Mathew Unger Procedure Performed: Selective coronary angiogram. Indication For Procedure: Unstable angina. Complications: None. Estimated Blood Loss: Less than 50 cc. Access: Right radial, closed by TR band. Sedation Time: 20 minutes with 1 of Versed and 25 of fentanyl. Description Of Procedure: After risks, and benefits, and alternatives were explained to the patient, patient agreed to proceed with procedure and signed informed consent. The patient was brought back to the photographic laboratory supervisor, prepped and draped in sterile fashion. Time-out was performed. Sedation was admini stered. Next, right radial access was obtained using ultrasound-guided micropuncture technique. Tig er 4.0 catheter was advanced over a J-wire to the aortic root. Selective angiogram was done using e same catheter. At the end of procedure, catheter was removed over a J-wire. Sheath was removed. TR band was applied. Hemostasis was achieved, and the patient was moved back to Recovery in stable c ondition. Findings: 1. Left main normal. 2. LAD normal. 3. Left circ dominant and normal. 4. Left PDA normal. 5. RCA small, nondominant, normal. Assessment And Plan: Normal coronaries. Plan is to continue medical management. DUNIA/KB Voice ID: [id number] Report ID: [id number]
[2024-11-17 13:44] VITALS: BP 156/95
[2024-11-17 14:28] VITALS: O2SAT 100
== END 2024-11-17 14:31 | disposition home or self-care (01) ==
LOC: ER 08:40 → ERHOLD 12:46 → 2ND 13:42
PROVIDERS: ADMIT Family Medicine; ATTEND Family Medicine
PROC: B2111ZZ Fluoroscopy of Multiple Coronary Arteries using Low Osmolar Contrast (ICD-10-PCS; principal; 2024-11-16)
DX: R07.9 Chest pain, unspecified (principal); I12.9 Hypertensive chronic kidney disease with stage 1 through stage 4 chronic kidney disease, or unspecified chronic kidney disease; E11.22 Type 2 diabetes mellitus with diabetic chronic kidney disease; N18.2 Chronic kidney disease, stage 2 (mild); R06.02 Shortness of breath; R42 Dizziness and giddiness; E78.5 Hyperlipidemia, unspecified; Z88.5 Allergy status to narcotic agent; Z88.8 Allergy status to other drugs, medicaments and biological substances; Z90.49 Acquired absence of other specified parts of digestive tract; Z90.710 Acquired absence of both cervix and uterus; Z82.49 Family history of ischemic heart disease and other diseases of the circulatory system; Z80.9 Family history of malignant neoplasm, unspecified
CPT/HCPCS: 96365; 93005; 85025; 80048; 36415; 83735 ×2; 84100; 85610; 80061; 82947 ×3; 80076; 85730; 84443; 81003; 84484 ×3; 84439; 83690; 80053; 83880; 71045; 93454; 76937; 96375; 99285; 96366; C1893; Q9966; J1644 ×4; J2003; J2250; J3010 ×2; G0378 ×4; J7040; 99152; J0461